=== PATIENT | female | born 1975 | race African-American/Black ===

== ENCOUNTER 2017-05-12 12:26 | Emergency (ER) | payer SELFPAY ==
[~2017-05-12] VITALS: Ht 172.7 cm; Wt 141.0 kg
[2017-05-12 15:10] VITALS: BP 120/72
== END 2017-05-12 15:13 | disposition home or self-care (01) ==
LOC: ER 12:26
DX: B34.9 Viral infection, unspecified (principal); F17.200 Nicotine dependence, unspecified, uncomplicated
CPT/HCPCS: 99283